=== PATIENT | female | born 1990 | race Caucasian/White ===

== ENCOUNTER 2016-11-04 16:21 | Emergency (ER) | payer OTHER, BC ==
[2016-11-04] MEDS ORDERED: ZOLOFT25 M1 PO (16:46)
[2016-11-04] MEDS ORDERED: UNISOM25 M1 PO (16:50)
[2016-11-04] MEDS ORDERED: VITAMIN B-6100 M1 PO (16:52)
[2016-11-04] MEDS ORDERED: PRENATAL-U CAPS1 CAP PO (16:52)
[2016-11-04 17:35] LABS: BASO % 0.1 % (0-2); EOS % 0.6 % (0-7); EOSINOPHIL ABSOLUTE COUNT 0.1 tho/cmm (0.0-0.7); HGB-HEMOGLOBIN 12.7 gm/dl (12.0-15.5); IMMATURE GRANULOCYTES ABSOLUTE 0.03 tho/cmm (0-0.03); IMMATURE GRANULOCYTES PERCENT 0.4 % (0-0.3); LYMPH % 7.6 % (20-45); LYMPH ABSOLUTE COUNT 0.7 tho/cmm (0.8-4.5); MCH (MEAN CORPUSCULAR HGB) 28.7 pg (28.0-32.0); MCHC MEAN CORPUSCULAR HGB CONC 34.3 % (32.0-36.0); MCV (MEAN CELL VOLUME) 83.7 fl (82.0-96.0); MEAN PLATELET VOLUME 10.8 cmc (9.4-12.4); MONO % 6.8 % (0-12); MONOCYTE ABSOLUTE COUNT 0.6 tho/cmm (0.0-1.2); NEUTROPHIL ABSOLUTE COUNT 7.2 tho/cmm (1.6-8.0); NEUTROPHIL-AUTOMATED 7.2 tho/cmm (1.6-8.0); NEUTROPHILS % 84.5 % (40-80); PLATELET COUNT 235 tho/cmm (150-450); RED BLOOD COUNT 4.42 mil/cmm (4.00-5.20); RED CELL DISTRIBUTION WIDTH 13.6 % (12.4-16.4); WHITE BLOOD COUNT 8.6 tho/cmm (4.0-10.0)
[2016-11-04 17:50] LABS: ALB/GLOB RATIO 0.9 (0.8-2.0); ALBUMIN 3.3 g/dl (3.5-5.0); ALKALINE PHOSPHATASE 48 U/L (33-138); ALT/SGPT 15 U/L (12-78); ANION GAP 12 mmol/L (0-20); AST/SGOT 15 U/L (10-40); BILIRUBIN,DIRECT <0.1 mg/dl (0.0-0.3); BILIRUBIN,INDIRECT 0.1 mg/dL (0.0-1.0); BILIRUBIN,TOTAL 0.2 mg/dl (0-1.5); BLOOD UREA NITROGEN 4 mg/dl (6-24); CALCIUM 8.2 mg/dl (8.5-10.5); CARBON DIOXIDE-VENOUS 23 mmol/L (22-32); CHLORIDE 105 mmol/l (96-110); CREATININE 0.55 mg/dl (0.50-1.10); GLUCOSE 111 mg/dL (70-110); LIPASE 98 U/L (73-393); POTASSIUM 3.4 mmol/L (3.7-5.1); SODIUM 137 mmol/L (135-145); eGFR VALUE FOR BLACK >90 mL/Min
[2016-11-04 18:31] LABS: URINE BILIRUBIN NEGATIVE (NEG); URINE BLOOD NEGATIVE (NEG); URINE GLUCOSE (UA) NEGATIVE (NEG); URINE KETONE NEGATIVE (NEG); URINE LEUKOCYTE ESTERASE NEGATIVE (NEG); URINE NITRITE NEGATIVE (NEG); URINE PROTEIN NEGATIVE (NEG); URINE SPECIFIC GRAVITY 1.005 (1.003-1.030)
[2016-11-04 18:33] LABS: URINE APPEARANCE CLEAR; URINE COLOR YELLOW
[2016-11-04] MEDS ORDERED: ZOFRAN4 M2 PO (20:54)
[2017-05-04] MEDS ORDERED: PROTONIX40 M2 PO (11:39)
[2017-05-09] MEDS ORDERED: IBUPROFEN800 M1 PO (11:42)
[2017-05-09] MEDS ORDERED: PERCOCET 5-3251 EACH PO (11:42)
== END 2016-11-04 21:09 ==
LOC: EDMED 16:21
PROVIDERS: Emergency Medicine
DX: O26.891 Other specified pregnancy related conditions, first trimester (principal); R10.11 Right upper quadrant pain; O99.89 Other specified diseases and conditions complicating pregnancy, childbirth and the puerperium; R11.10 Vomiting, unspecified; Z3A.13 13 weeks gestation of pregnancy
CPT/HCPCS: J0131; J2405; J7030